=== PATIENT | female | born 1985 | race Asian ===

== ENCOUNTER → 2017-04-14 | Outpatient (CLI) | payer OTHER | LOC: M RAD 17:04 | DX: Z34.82 Encounter for supervision of other normal pregnancy, second trimester (principal) ==

== ENCOUNTER → 2017-05-24 | Outpatient (CLI) | payer OTHER ==
[2017-05-24 14:04] LABS: BASO % 0.1 % (0.0-1.0); EOS # 0.1 10^3/uL (0.0-0.50); EOS % 1.6 % (0.0-3.0); HEMATOCRIT 33.7 % (36.0-47.0); HEMOGLOBIN 11.3 g/dl (12.0-16.0); IMMATURE GRANULOCYTE % 0.4 % (0-3.0); LYMPH # 1.1 10^3/uL (1.5-4.5); LYMPH % 14.3 % (24.0-44.0); MEAN CORPUSCULAR HEMOGLOBIN 31.7 pg (27.0-33.0); MEAN CORPUSCULAR HGB CONC 33.5 g/dl (32.0-36.5); MEAN CORPUSCULAR VOLUME 94.4 fl (80.0-96.0); MONO # 0.4 10^3/uL (0.0-0.8); MONO % 4.7 % (0.0-5.0); NEUTROPHILS % 78.9 % (36.0-66.0); PLATELET COUNT, AUTOMATED 177 10^3/uL (150-450); RED BLOOD COUNT 3.57 10^6/uL (4.00-5.40); RED CELL DISTRIBUTION WIDTH 12.9 % (11.5-14.5); WHITE BLOOD COUNT 7.6 10^3/uL (4.0-10.0)
[2017-05-24 14:36] LABS: GLUCOSE CHALLENGE TEST 1 HOUR 145 MG/DL (LESS THAN 140)
[2017-05-24 15:37] LABS: CHLAMYDIA DNA AMPLIFICATION NEGATIVE (NEGATIVE); GC DNA AMPLIFICATION NEGATIVE (NEGATIVE)
[2017-05-26 10:27] LABS: HBsAg Prenatal NEGATIVE (NEGATIVE)
[2017-05-26 10:34] LABS: RUBELLA IgG QUALITATIVE IMMUNE (IMMUNE)
[2017-05-26 11:09] LABS: HIV 1&2 SCREEN CENTAUR NEGATIVE (NEGATIVE)
== END ==
LOC: M LAB 12:25
DX: Z34.81 Encounter for supervision of other normal pregnancy, first trimester (principal); Z36.89 Encounter for other specified antenatal screening
CPT/HCPCS: 82950

== ENCOUNTER → 2017-07-23 | Outpatient (REF) | payer OTHER | LOC: M LAB REF 17:08 | DX: Z34.93 Encounter for supervision of normal pregnancy, unspecified, third trimester (principal) ==

== ENCOUNTER 2017-08-25 22:19 | Inpatient (IN) | payer OTHER ==
[2017-08-25 23:15] LABS: HEMATOCRIT 31.1 % (36.0-47.0); HEMOGLOBIN 10.5 g/dl (12.0-15.5); MEAN CORPUSCULAR HEMOGLOBIN 31.4 pg (27.0-33.0); MEAN CORPUSCULAR HGB CONC 33.8 g/dl (32.0-36.5); MEAN CORPUSCULAR VOLUME 93.1 fl (80.0-96.0); PLATELET COUNT, AUTOMATED 171 10^3/uL (150-450); RED BLOOD COUNT 3.34 10^6/uL (4.00-5.40); RED CELL DISTRIBUTION WIDTH 12.8 % (11.5-14.5); WHITE BLOOD COUNT 7.1 10^3/uL (4.0-10.0)
[2017-08-25] MEDS ORDERED: OXYTOCIN 30 UNITS IN 0.9% NaCl 500ML IV BAG (J2590) As Ordered (23:50)
[2017-08-26] MEDS: LR 1,000 ML IV ×2 (00:09→08:00)
[2017-08-26] MEDS: OXYTOCIN DRIP 30 UNITS in APPROPRIATE DILUENT 1 EA IV ×2 (00:09→10:22)
[2017-08-26] MEDS ORDERED: FENTANYL 2MCG/ML ROPIVACAINE 0.2% IN 0.9% NACL 200ML IVBAG As Ordered (08:14)
[2017-08-26] MEDS ORDERED: LACTATED RINGER'S 1000 ML IV (08:20)
[2017-08-26] MEDS ORDERED: REFRIGERATOR IV KEYS XX (08:20)
[2017-08-26] MEDS ORDERED: EPIDURAL COMMENT XX (08:20)
[2017-08-26] MEDS ORDERED: FENTANYL/ROPIVACAINE/NACL BAG 200 ML EPIDURAL (08:20)
[2017-08-26] MEDS ORDERED: ePHEDrine SULFATE 25 MG/5 ML(5MG/ML) SYRINGE IV (08:20)
[2017-08-26] MEDS ORDERED: EPIDURAL/PCA KEYS XX (08:20)
[2017-08-26] MEDS ORDERED: NALOXONE INJ 0.4 MG/1 ML VIAL (J2310) IV (08:20)
[2017-08-26] MEDS ORDERED: diphenhydrAMINE INJ 50MG/ML VIAL (J1200) IV (08:20)
[2017-08-26] MEDS ORDERED: ONDANSETRON 4MG/2ML VIAL (J2405) IV (08:20)
[2017-08-26] MEDS: PRENATAL VITAMINS CHEWABLE TABLET PO (09:00)
[2017-08-26] MEDS ORDERED: ANUSOL HC CREAM 30GM TOP (10:30)
[2017-08-26] MEDS ORDERED: DIBUCAINE 1% OINTMENT 30GM TOP (10:30)
[2017-08-26] MEDS ORDERED: MOM 30ML SUSPENSION UDC PO (10:30)
[2017-08-26] MEDS ORDERED: MEASLES,MUMPS,RUBELLA VACCINE INJ (MMR-II) (90707) SC (10:30)
[2017-08-26] MEDS ORDERED: RHOGAM 300 MCG (1500 IU) INJ (J2790) IM (10:30)
[2017-08-26] MEDS ORDERED: ACETAMINOPHEN 500 MG TAB PO (10:30)
[2017-08-26] MEDS ORDERED: METHYLERGONOVINE MALEATE 0.2 MG TAB PO (10:30)
[2017-08-26] MEDS ORDERED: DOCUSATE SODIUM 100 MG CAP PO (10:30)
[2017-08-26] MEDS: IBUPROFEN 800 MG TAB PO (21:08)
[2017-08-27] MEDS: PRENATAL VITAMINS CHEWABLE TABLET PO (09:32)
== END 2017-08-27 16:10 | disposition home or self-care (01) | DRG 775 ==
LOC: M LDI 22:19 → M OBS 08-26 11:13
PROVIDERS: Advanced Practice Midwife
PROC: 3E033VJ Introduction of Other Hormone into Peripheral Vein, Percutaneous Approach (ICD-10-PCS; 2017-08-25)
PROC: 10E0XZZ Delivery of Products of Conception, External Approach (ICD-10-PCS; principal; 2017-08-26)
DX: O48.0 Post-term pregnancy (principal); Z37.0 Single live birth; Z3A.41 41 weeks gestation of pregnancy; O34.211 Maternal care for low transverse scar from previous cesarean delivery

== ENCOUNTER → 2018-09-02 | Outpatient (REF) | payer OTHER ==
[~2018-09-02] MED LIST: ANUS2.5C2 TOP; IBUP-1114 PO; MAPA500T2 PO; NUPE1OIN2 TOP; PRENTAB9 PO
[2018-09-02 11:21] LABS: BASO % 0.4 % (0.0-1.0); EOS # 0.3 10^3/uL (0.0-0.50); EOS % 5.3 % (0.0-3.0); HEMATOCRIT 39.3 % (36.0-47.0); LYMPH # 1.7 10^3/uL (1.5-4.5); LYMPH % 33.7 % (24.0-44.0); MEAN CORPUSCULAR HEMOGLOBIN 30.4 pg (27.0-33.0); MEAN CORPUSCULAR HGB CONC 33.1 g/dl (32.0-36.5); MEAN CORPUSCULAR VOLUME 91.8 fl (80.0-96.0); MONO # 0.4 10^3/uL (0.0-0.8); MONO % 7.1 % (0.0-5.0); NEUTROPHILS # 2.6 10^3/uL (1.8-7.7); NEUTROPHILS % 53.5 % (36.0-66.0); PLATELET COUNT, AUTOMATED 241 10^3/uL (150-450); RED BLOOD COUNT 4.28 10^6/uL (4.00-5.40); WHITE BLOOD COUNT 4.9 10^3/uL (4.0-10.0)
[2018-09-02 11:29] LABS: ALBUMIN 4.2 GM/DL (3.2-5.2); ALT/SGPT 21 U/L (12-78); BILIRUBIN,TOTAL 0.6 MG/DL (0.2-1.0); BLOOD UREA NITROGEN 15 MG/DL (7-18); CARBON DIOXIDE LEVEL 26 MEQ/L (21-32); CHLORIDE LEVEL 106 MEQ/L (98-107); CHOLESTEROL LEVEL 134 MG/DL (<200); CREATININE FOR GFR 0.94 MG/DL (0.55-1.30); GLOMERULAR FILTRATION RATE > 60.0 (>60); GLUCOSE, FASTING 85 MG/DL (70-100); HDL CHOLESTEROL 67 MG/DL (>40); LDL CHOLESTEROL 54 MG/DL (<100); NON-HDL-C 67 MG/DL; POTASSIUM SERUM 4.2 MEQ/L (3.5-5.1); SODIUM LEVEL 139 MEQ/L (136-145); TOTAL PROTEIN 7.8 GM/DL (6.4-8.2); TRIGLYCERIDES LEVEL 67 MG/DL (<150)
[2018-09-02 11:40] LABS: HEMOGLOBIN A1c 5.9 %
== END ==
LOC: M SFHCLERA 09:14
PROVIDERS: ATTEND Nurse Practitioner Family
DX: Z00.00 Encounter for general adult medical examination without abnormal findings (principal); Z86.32 Personal history of gestational diabetes